=== PATIENT | male | born 1975 | race Asian ===

== ENCOUNTER 2024-08-22 08:29 | Outpatient (CLI) | payer OTHER ==
--- NOTE | 2024-08-24 11:26 | MRI Report ---
Knee RT WO CLINICAL INFORMATION: 48 years of age, Male, R KNEE PAIN. COMPARISON: None Technique: Multisequence, multiplanar MRI of the right knee was performed without intravenous contras t. FINDINGS: Menisci: In the medial meniscus, there is full-thickness tear of the posterior root. The meniscus bod y is extremely diminutive, which may be postprocedural versus complex tear. There is mild extrusion o f the medial meniscus body. In the lateral meniscus, the meniscus body is extremely diminutive as wel l, which may be postprocedural versus tear. No extrusion of the lateral meniscus body. Cruciate ligaments: Status post ACL reconstruction with intact ACL graft. There is mild anterior subl uxation of the tibial plateau with respect to the femoral condyle. The PCL is intact. MCL/LCL: The MCL is unremarkable. The biceps femoris tendon is unremarkable. Susceptibility artifact about the proximal fibular ligament, postprocedural. The fibular collateral ligament is intact.The i liotibial band is intact. The popliteus muscle and tendon also appear intact. Extensor mechanism: The quadricep tendon is unremarkable. Graft harvesting at the proximal patellar t endon. Moderate tendinosis of the proximal patellar tendon. Heterotopic ossification of the proximal patellar tendon. Patellofemoral joint: Alignment within the patellofemoral joint is normal. The patellofemoral ligame nts are intact. High-grade chondral fissuring in the lateral patellar facet. Additional mild chondral irregularity of the patella with mild subchondral marrow edema. There is high-grade chondral loss in the medial trochlea with mild subchondral marrow edema. Cartilage and bone: In the medial compartment, there is high-grade chondral loss in the weightbearing portion of the femoral condyle. Minimal subchondral marrow edema in the weightbearing portion of the medial femoral condyle. In the lateral compartment, there is multifocal small area of high-grade cho ndral loss in the nonweightbearing portion of the femoral condyle. There is mild chondral thinning in the weightbearing portion of the lateral femoral condyle. No acute fracture. There is a 1.9 cm area of curvilinear T1 hypointensity in the proximal fibula metadiaphysis, nonspeci fic and may represent a bone infarct. Miscellaneous: Small knee effusion. No popliteal cyst. No intra-articular bodies are identified. Int erstitial tear of the proximal posterior tibialis tendon (series 10, image 18), with mild surrounding muscle edema. IMPRESSION: 1.Full-thickness tear of the posterior root of the medial meniscus. 2.Diminutive medial and lateral meniscus body, which may be postprocedural versus tear. 3.Status post ACL reconstruction with intact ACL graft. 4.Moderate chondrosis of the medial and patellofemoral compartment. Mild chondrosis of the lateral co mpartment. 5.1.9 cm curvilinear T1 hypointensity in the proximal fibular metadiaphysis, nonspecific and may repr esent a bone infarct. 6.Interstitial tear of the proximal posterior tibialis tendon with mild surrounding muscle edema. Reviewed by: Mellissa Ying MD on 08/24/2024 11:25 AM PDT Approved by: Mellissa Ying MD on 08/24/2024 11:25 AM PDT Station ID: [id number]
--- NOTE | 2024-08-24 11:42 | MRI Report ---
Lumbar Spine WO Clinical History: 48 years of age, Male, LUMBAR RADICULOPATHY. Comparison: No priors available Technique: Multiplanar multisequence lumbar spine MRI without contrast was performed. Findings: Prior surgery: None. Vertebral bodies: Vertebral body heights are maintained. Alignment: Normal. Bone marrow: Small lesion with mild T2 hyperintensity and mild T1 hypointensity in L1 vertebral body, nonspecific and may represent an atypical vertebral hemangioma. Mild fibrovascular endplate change a t T11-T12. Intervertebral discs: Multilevel disc bulge and disc desiccation. The conus medullaris is normal in contour, signal intensity, and location. The tip of the conus is at L1-L2. The following axial levels are detailed below: T12-L1: No central canal stenosis. No right neuroforaminal stenosis. No left neuroforaminal stenosis. L1-L2: No central canal stenosis. No right neuroforaminal stenosis. No left neuroforaminal stenosis. L2-L3: No central canal stenosis. No right neuroforaminal stenosis. No left neuroforaminal stenosis. L3-L4: No central canal stenosis. No right neuroforaminal stenosis. No left neuroforaminal stenosis. L4-L5: Mild disc bulge. No central canal stenosis. No right neuroforaminal stenosis. No left neurofor aminal stenosis. L5-S1: Mild bilateral facet arthropathy. No central canal stenosis. No right neuroforaminal stenosis. No left neuroforaminal stenosis. Visualized sacrum and pelvis: Visualized sacrum is unremarkable. No abdominal aortic aneurysm. IMPRESSION: 1.Multilevel degenerative changes of the lumbar spine, without neuroforaminal or central canal stenos is. 2.Mild fibrovascular endplate change at T11-T12. Reviewed by: Mellissa Ying MD on 08/24/2024 11:41 AM PDT Approved by: Mellissa Ying MD on 08/24/2024 11:41 AM PDT Station ID: [email or web address]
== END 2024-08-22 08:30 | disposition home or self-care (01) ==
LOC: DI 08:29
PROVIDERS: ATTEND Registered Nurse
DX: M47.817 Spondylosis without myelopathy or radiculopathy, lumbosacral region (principal); M51.36 Other intervertebral disc degeneration, lumbar region; S83.241A Other tear of medial meniscus, current injury, right knee, initial encounter; M94.261 Chondromalacia, right knee; S86.811A Strain of other muscle(s) and tendon(s) at lower leg level, right leg, initial encounter